=== PATIENT | female | born 2000 | race Caucasian/White ===

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

== ENCOUNTER 2021-07-05 13:26 | Emergency (ER) | payer MEDICAID ==
[2021-07-05 13:47] VITALS: BP 127/67; PULSE 67
[2021-07-05] MEDS ORDERED: Ketorolac 30 MG/ML SDV IM ONE (14:15)
--- NOTE | 2021-07-05 14:19 | EDM.PDOC ---
ED HPI GENERAL MEDICAL PROBLEM - General Chief Complaint: COMMUNITY ENGAGEMENT REPRESENTATIVE Problem Stated Complaint: STARTED PERIOD WEEK EARLY AND CRAMPING BAD Time Seen by Provider: 07/05/21 14:05 Source of Information: Reports: Patient, Old Records, RN History Limitations: Reports: No Limitations - History of Present Illness INITIAL COMMENTS - FREE TEXT/NARRATIVE: 20 yo female presents with heavy vaginal bleeding and cramping of recent onset. Was not due for her menses for another week. Is sexually active without protection. Took ibuprofen about 7 am today and Pamprin without relief. No dysuria. Has had ovarian cysts in the past. 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) Pelvic Pain Score (Numeric/FACES): 6 - Related Data Allergies Allergy/AdvReac Type Severity Reaction Status Date / Time No Known Allergies Allergy Verified 07/05/21 13:56 Home Meds: Home Meds Albuterol Sulfate [Proventil Hfa] 2 puff IH Q4H PRN 08/08/18 [History] Budesonide/Formoterol [Symbicort 80-4.5 MCG] 2 puff INH DAILY 07/05/21 [History] Past Medical History - Past Health History Medical/Surgical History: Denies Medical/Surgical History HEENT History: Reports: Impaired Vision 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: Reports: Other (See Below) Other COMMUNITY 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: Hx of ovarian cysts Musculoskeletal History: Reports: Fracture Psychiatric History: Reports: Anxiety, Depression - Infectious Disease History Infectious Disease History: Reports: Novel Coronavirus - Past Surgical History HEENT Surgical History: Reports: Other (See Below) Other HEENT Surgeries/Procedures: TONSIL STONES Social & Family History - Tobacco Use Tobacco Use Status *Q: Never Tobacco User - Caffeine Use Caffeine Use: Reports: Tea - Recreational Drug Use Recreational Drug Use: No - Living Situation & Occupation Living situation: Reports: Single, with Family Occupation: Student ED ROS GENERAL - Review of Systems Review Of Systems: See Below Constitutional: Reports: No Symptoms. Denies: Fever, Chills HEENT: Reports: No Symptoms Respiratory: Reports: No Symptoms Cardiovascular: Reports: No Symptoms GI/Abdominal: Reports: No Symptoms : Reports: Irregular Menses, Other (menorrhagia, cramps) Musculoskeletal: Reports: No Symptoms Skin: Reports: No Symptoms Neurological: Reports: No Symptoms ED EXAM, RENAL/ - Physical Exam Exam: See Below Exam Limited By: No Limitations General Appearance: Alert, WD/WN, No Apparent Distress, Obese Eye Exam: Bilateral Eye: Normal Inspection Ears: Normal External Exam, Normal Canal, Hearing Grossly Normal, Normal TMs Nose: Normal Inspection, No Blood Throat/Mouth: Normal Inspection, Normal Lips, Normal Oropharynx, Normal Voice, No Airway Compromise Head: Atraumatic, Normocephalic Neck: Normal Inspection Respiratory/Chest: No Respiratory Distress, Lungs Clear, Normal Breath Sounds, No Accessory Muscle Use Cardiovascular: Regular Rate, Rhythm, No Edema Back Exam: No: CVA Tenderness (R), CVA Tenderness (L) Extremities: Normal Inspection Neurological: Alert, Oriented, CN II-XII Intact, Normal Cognition, No Motor/Sensory Deficits Psychiatric: Normal Affect, Normal Mood Skin Exam: Warm, Dry, Intact, Normal Color, No Rash Course - Vital Signs Last Recorded V/S: Last Vital Signs Temp 36.4 C 07/05/21 13:49 Pulse 67 07/05/21 13:49 Resp 16 07/05/21 13:49 BP 127/67 07/05/21 13:49 Pulse Ox 100 07/05/21 13:49 - Orders/Labs/Meds Labs: Laboratory Tests 07/05/21 Range/Units 13:58 Urine HCG, Qual Negative Meds: Medications Discontinued Medications Generic Name Dose Route Start Last Admin Trade Name Joaquim PRN Reason Stop Dose Admin Ketorolac Tromethamine 30 mg 07/05/21 14:15 07/05/21 14:22 Ketorolac 30 Mg/Ml Sdv IM 07/05/21 14:16 30 mg ONETIME ONE Administration Departure - Departure Time of Disposition: 14:50 Disposition: Home, Self-Care 01 Condition: Good Clinical Impression: Menstrual cramps - Discharge Information *PRESCRIPTION DRUG MONITORING PROGRAM REVIEWED*: Not Applicable *COPY OF PRESCRIPTION DRUG MONITORING REPORT IN PATIENT [place]: Not Applicable Referrals: Aleida Soriano PA-C [Primary Care Provider] - Forms: ED Department Discharge Additional Instructions: Try naproxen sodium 2 every 8 hrs with food as needed for cramping. May add acetaminophen up to 1000 mg every 6 hrs as needed for added relief. Recheck as needed. Sepsis Event Note (ED) - Evaluation Sepsis Screening Result: No Definite Risk - Focused Exam Vital Signs: Vital Signs Temp Pulse Resp BP Pulse Ox 07/05/21 13:49 36.4 C 67 16 127/67 100 07/05/21 13:46 36.4 C 67 16 127/67 100
== END 2021-07-05 15:12 | disposition home or self-care (01) ==
LOC: JP.ED 13:26
DX: N94.6 Dysmenorrhea, unspecified (principal)
CPT/HCPCS: 81025; 96372; 99284; J1885